=== PATIENT | female | born 1970 | race African-American/Black ===

== ENCOUNTER 2018-10-16 23:14 | Emergency (ER) | payer MEDICAID, OTHER ==
[2018-10-17] MEDS ORDERED: Diphtheria,Pertussis(Acell),Tetanus Vaccine 0.5 ML SDV IM ONE (00:32)
[2018-10-17] MEDS ORDERED: Bacitracin Oint 1 GM U/D Packet TOP ONE (00:38)
--- NOTE | 2018-10-17 00:38 | EDM.PDOC ---
ED HPI GENERAL MEDICAL PROBLEM - General Chief Complaint: Lower Extremity Injury/Pain Stated Complaint: LACERATION RIGHT MIDDLE FINGER Time Seen by Provider: 10/16/18 23:49 Source of Information: Reports: Patient History Limitations: Reports: No Limitations - History of Present Illness INITIAL COMMENTS - FREE TEXT/NARRATIVE: This lady was closing her garage door when she got her right middle finger caught in it. This caused a laceration across the pad of the distal phalanx. This happened right before arrival. She's not certain if she's had a tetanus or not. 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 ED EXAM, GENERAL - Physical Exam Exam: See Below Exam Limited By: No Limitations General Appearance: Alert, WD/WN, Mild Distress Extremities: Other (There is a 2.5 cm laceration which is transverse across the palmar surface of the distal phalanx of the right middle finger. This is about 1 cm distal to the DIP joint. There is no involvement of the DIP joint and there 's full range of motion. Testing indicates that there is no fracture of the distal phalanx. The wound appears to be clean.) Course - Vital Signs Last Recorded V/S: Last Vital Signs Temp 36.4 C 10/16/18 23:30 Pulse 74 10/16/18 23:30 Resp 16 10/16/18 23:30 BP 190/92 H 10/16/18 23:30 Pulse Ox 100 08/16/19 23:30 - Orders/Labs/Meds Meds: Medications Discontinued Medications Generic Name Dose Route Start Last Admin Trade Name Dolores PRGautam Reason Stop Dose Admin Lidocaine HCl 5 ml 10/16/18 23:49 Xylocaine-Mpf 1% INJECT 10/16/18 23:50 ONETIME ONE - Re-Assessments/Exams Free Text/Narrative Re-Assessment/Exam: 10/17/18 00:37 Procedure: Laceration repair laceration was injected with a total of about 2 mL of 1% plain lidocaine. This was done locally gave good anesthesia. The wound was then scrubbed with just saline it was explored and it was copiously lavaged with multiple syringes of saline. The wound was then closed with a running closely spaced 4-0 nylon. Giving a good cosmetic result. Neurovascular tendon all intact after the procedure. Bacitracin ointment and a dressing were then applied Free Text/Narrative Re-Assessment/Exam: 10/17/18 00:39 The patient was uncertain of her last tetanus away Adacel injection was given Departure - Departure Time of Disposition: 00:39 Disposition: Home, Self-Care 01 Condition: Fair Clinical Impression: Laceration of right middle finger - Discharge Information Referrals: PCP,None [Primary Care Provider] - Additional Instructions: Wash the finger with soap and water every day. Apply some antibiotic ointment and keep covered with a dressing. You should be able to return to work tomorrow but you will have to keep the dressing clean and dry and I recommend he wear a glove over the bandage. Watch for signs of infection. In 10 days see your doctor for suture removal
== END 2018-10-17 00:56 | disposition home or self-care (01) ==
LOC: JP.ED 23:14
DX: S61.212A Laceration without foreign body of right middle finger without damage to nail, initial encounter (principal); E78.00 Pure hypercholesterolemia, unspecified; I10 Essential (primary) hypertension; Z79.899 Other long term (current) drug therapy; Z23 Encounter for immunization; W23.1XXA Caught, crushed, jammed, or pinched between stationary objects, initial encounter
CPT/HCPCS: 12001; 90471; 90715; 99282; J2001; 99283

== ENCOUNTER 2018-10-27 06:45 | Emergency (ER) | payer SELFPAY ==
--- NOTE | 2018-10-27 07:25 | EDM.PDOC ---
ED HPI GENERAL MEDICAL PROBLEM - General Chief Complaint: Upper Extremity Injury/Pain Stated Complaint: REMOVE STITCHES Time Seen by Provider: 10/27/18 07:15 Source of Information: Reports: Patient, Old Records History Limitations: Reports: No Limitations - History of Present Illness INITIAL COMMENTS - FREE TEXT/NARRATIVE: Sutures placed in her finger here 10 d ago. Here for removal. 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) (wound care) - Related Data Allergies Allergy/AdvReac Type Severity Reaction Status Date / Time No Known Allergies Allergy Verified 10/27/18 07:02 Home Meds: Home Meds Lisinopril/Hydrochlorothiazide [Lisinopril-Hctz 20-25 mg Tab] 1 tab PO DAILY [History] atorvaSTATin [Lipitor] 40 mg PO BEDTIME 10/16/18 [History] Past Medical History HEENT History: Reports: Impaired Vision Other HEENT History: wears glasses Cardiovascular History: Reports: High Cholesterol, Hypertension 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 ED EXAM, GENERAL - Physical Exam Exam: See Below Exam Limited By: No Limitations General Appearance: Alert, WD/WN, No Apparent Distress Neurological: Alert, Oriented, CN II-XII Intact, Normal Cognition, No Motor/ Sensory Deficits Skin Exam: Warm, Dry, Normal Color, No Rash, Wound/Incision (adequate healing for suture removal.) Course - Vital Signs Text/Narrative:: Sutures removed. New dressing applied. Last Recorded V/S: Last Vital Signs Temp 35.1 C L 10/27/18 07:15 Pulse 61 10/27/18 07:15 Resp 16 10/27/18 07:15 BP 164/94 H 10/27/18 07:15 Pulse Ox 99 10/27/18 07:15 Departure - Departure Time of Disposition: 07:26 Disposition: Home, Self-Care 01 Condition: Good Clinical Impression: Visit for suture removal - Discharge Information *PRESCRIPTION DRUG MONITORING PROGRAM REVIEWED*: No *COPY OF PRESCRIPTION DRUG MONITORING REPORT IN PATIENT DIMITRIOS: No Referrals: PCP,None [Primary Care Provider] - Additional Instructions: Protect your finger with a dressing for a few more days. Acetaminophen as needed for pain relief.
== END 2018-10-27 07:35 | disposition home or self-care (01) ==
LOC: JP.ED 06:45
DX: S61.212D Laceration without foreign body of right middle finger without damage to nail, subsequent encounter (principal); E78.00 Pure hypercholesterolemia, unspecified; I10 Essential (primary) hypertension; Z79.899 Other long term (current) drug therapy; W23.1XXD Caught, crushed, jammed, or pinched between stationary objects, subsequent encounter
CPT/HCPCS: 99281